=== PATIENT | female | born 1975 | race Caucasian/White ===

== ENCOUNTER 2017-02-19 18:25 | Emergency (ER) | payer BC ==
[~2017-02-19 18:25] MED LIST: AUGMENTIN 875-11 TAB; CALCIUM +D & M1 EAC1 PO; CLARITIN10 M4 PO; CLARITIN10 MG/TAB; ECHINACEA CH; FOLIC ACID SL; IRON CHEWS PO; LORTAB ELIXIR480 ML PO; MULTIVITAM1 TAB.CHEW PO; MULTIVITAMIN1 TAB PO; OMEPRAZOLE20 M2 PO; PROVENTIL17 GM; RANITIDINE HCL150 MG; RANITIDINE HCL150 MG PO; TOPAMAX25 M1 PO; TYLENOL EXTRA500 MG PO; VITAMIN C PO; VITAMIN D CH; VIVELLE-DO1 PATCH.B TD; ZYRTEC10 M5 PO; [UNRECOGNIZED DRUG - OTHER] SL
[2017-02-19] MEDS ORDERED: REQUIP0.5 M1 PO (19:10)
[2017-02-19] MEDS ORDERED: PRILOSEC OTC20 M1 PO (19:10)
[2017-02-19] MEDS ORDERED: NORCO 5-325 TA1 EACH PO (20:36)
== END 2017-02-19 20:53 ==
LOC: EDMED 18:25
DX: M79.672 Pain in left foot (principal); M79.671 Pain in right foot; J45.909 Unspecified asthma, uncomplicated; Z86.718 Personal history of other venous thrombosis and embolism; Z79.51 Long term (current) use of inhaled steroids; Z79.899 Other long term (current) drug therapy; Z90.710 Acquired absence of both cervix and uterus; W10.9XXA Fall (on) (from) unspecified stairs and steps, initial encounter; Y92.019 Unspecified place in single-family (private) house as the place of occurrence of the external cause